=== PATIENT | female | born 1990 | race Caucasian/White ===

== ENCOUNTER → 2019-09-13 15:13 | Outpatient (CLI) | payer OTHER, SELFPAY ==
[2019-09-13 17:06] LABS: Vitamin B12 414 pg/mL (211-911); Vitamin D,25 Hydroxy 16.2 ng/mL (29.95-100.01)
[2019-09-13 17:09] LABS: Absolute Lymphocyte Count 3.14 X10^3/uL (0.83-4.51); Absolute Neutrophil Count 7.3 X10^3/uL (2.0-7.7); Basophil# 0.06 X10^3/uL; Basophil% 0.5 % (0-1); Eosinophil# 0.33 X10^3/uL; Eosinophils% 2.8 % (0-5); Hematocrit 40.6 % (37-47); Hemoglobin 13.3 g/dL (12.0-15.0); Lymphocyte # 3.14 X10^3/ul (4.0); Lymphocyte % 27.1 % (19-41); Mean Corp Hgb Conc 32.8 g/dL (32-36); Mean Corpuscular Hgb 28.8 pg (27.0-32.0); Mean Corpuscular Volume 87.9 fL (81-99); Mean Platelet Vol. 10.7 fl (6.2-12.0); Monocyte# 0.77 X10^3/uL; Monocyte% 6.6 % (0-10); NRBC Flagged by Analyzer 0 % (0-5); Neutrophil # 7.27 X10^3/uL (2.7-7.7); Neutrophil % 62.8 % (47-70); Platelet Count 286 K/mm3 (150-450); RBC Distribution Width CV 12.5 % (11.6-14.6); Red Blood Count 4.62 M/mm3 (4.2-5.4); White Blood Count 11.6 K/mm3 (4.4-11.0)
[2019-09-13 17:36] LABS: Ferritin 125 ng/mL (8-252); Iron 54 ug/dL (50-170); Iron Binding Capacity,Total 318 ug/dL (250-450); T4 Free Direct 1.03 ng/dL (0.76-1.46); Thyroid Stim Hormone (TSH) 1.09 uIU/mL (0.358-3.74)
[2019-09-16 14:08] LABS: Anti-Centromere B Ab <0.2 AI (0.0-0.9); Anti-Chromatin <0.2 AI (0.0-0.9); Anti-Jo <0.2 AI (0.0-0.9); Anti-Scleroderma-70 AB <0.2 AI (0.0-0.9); RNP Ab 0.2 AI (0.0-0.9); SJOGREN'S Anti-SS-A test < 0.2 AI (0.0-0.9); SJOGREN'S Anti-SS-B test < 0.2 AI (0.0-0.9); Smith Ab <0.2 AI (0.0-0.9)
[2019-09-16 14:34] LABS: Anti-dsDNA Ab <1 IU/mL (0-9)
[2019-09-17 14:19] LABS: DHEA Sulfate 93.4 ug/dL (84.8-378.0); Testosterone, % Free 3.17 % (0.50-2.80); Testosterone, Free 0.57 ng/dL (0.10-0.85); Testosterone, Total 18 ng/dL (8-48)
[2019-09-18 11:59] LABS: Zinc, Plasma or Serum 63 ug/dL (56-134)
== END ==
PROVIDERS: Visit Provider Dermatology
DX: L65.0 Telogen effluvium (principal)
CPT/HCPCS: 36415; 82306; 82607; 82627; 82728; 82746; 83540; 83550; 84402; 84403; 84439; 84443; 84630; 85025; 86225; 86235; 82626

== ENCOUNTER → 2023-12-19 | Outpatient (CLI) | payer OTHER, SELFPAY | END | disposition home or self-care (01) | LOC: BFHLAB 16:24 | PROVIDERS: PCP Family Medicine; Referring Provider Family Medicine; Visit Provider Family Medicine | DX: T78.1XXA Other adverse food reactions, not elsewhere classified, initial encounter (principal) | CPT/HCPCS: 86003; 86005 ==